=== PATIENT | male | born 1985 | race African-American/Black ===

== ENCOUNTER → 2020-02-03 | Day surgery (SDC) | payer OTHER ==
[~2020-02-03] MED LIST: Flumazenil 0.1 MG/ML 5 ML MDV IV ONE; Ketamine 200 MG/20 ML MDV IV ONE; Lactated Ringers 1,000 ML IV SCH; Midazolam 1 MG/ML 2 ML SDV IV ONE; Phenylephrine 1% 10 MG/ML SDV IV ONE; Propofol 200 MG/20 ML SDV IV ONE; fentaNYL 100 MCG/2 ML SDV IV ONE
--- NOTE | 2020-02-06 14:56 | OR ---
DATE OF OPERATION: 02/03/2020 PREOPERATIVE DIAGNOSIS: 1. NAUSEA AND DIARRHEA. 2. UNINTENTIONAL WEIGHT LOSS. POSTOPERATIVE DIAGNOSIS: 1. NAUSEA AND DIARRHEA. 2. UNINTENTIONAL WEIGHT LOSS. SURGEON: Darvin Linares MD PROCEDURE: 1. EGD WITH BIOPSIES X3, JAZ. 2. FULL-LENGTH COLONOSCOPY WITH RANDOM BIOPSIES X5. ANESTHESIA: MAC. COMPLICATIONS: None. SPECIMEN: 1. Duodenal bulb biopsy x1. 2. Antral biopsy x2. 3. Antral JAZ. 4. Random colon biopsies x5 from terminal ileum to rectal vault. FINDINGS: 1. Full length EGD. 2. Healing gastric erosions x2 near the pylorus. 3. Full-length colonoscopy. 4. Possible low-grade diffuse colitis. RECOMMENDATIONS: Followup pending pathology reports. INDICATIONS: Mr. Porter is a 34-year-old healthy black male who over the last 6 months has had unintentional weight loss, persistent nausea, dyspepsia, and diarrhea. Ultimately, he was sent for diagnostic endoscopy. DESCRIPTION OF PROCEDURE: The patient was prepped and draped, placed in the left lateral decubitus position. A lubricated Olympus gastroscope was inserted over a bit, advanced to cricopharyngeal area, and with patient swallow, intubated into the esophagus. The esophageal lining was benign in its entire course. The Z-line was crisp and sharp at 43 cm. No spontaneous reflux seen. There was no distal esophagitis, stricturing, ulceration, or Brown's changes. The scope advanced into the stomach, through the pylorus, and into the second portion of the duodenum. This and the duodenal bulb appeared benign. There may have been a little bit of villous atrophy, we did do a biopsy of the duodenal bulb. The scope was brought back into the stomach and retroflexed. The upper fundus and cardia were unremarkable. Upon straightening, the rest of the fundus was benign. There may have been some very mild gastritis of the mid to distal portion of the antrum, and extending into the peripyloric area, there appeared to be 2 healing erosions. We did do 2 biopsies of those areas along with an antral CLOtest obtained of an unaffected portion. Air was then suctioned from the stomach and the scope was removed without complication. A lubricated Olympus colonoscope was then inserted, we were able to easily advanced it to the cecum, directly visualized the ileocecal valve and appendiceal orifice, and very briefly, we were able to get into the ileocecal valve. A biopsy was attempted to be obtained, we got very minimal result, but there was no gross abnormalities of the terminal ileum. Nothing to suggest Crohn's. The entire length of the colon appeared to have kind of a slightly inflamed erythematous appearance. No gross ulcerations or signs of fulminant colitis. We did do random biopsies through the length of the colon, totalling [address] to the rectal vault. I found no signs of any polyps, masses, tumors, or worrisome lesions. No diverticula were seen in the rectal vault itself other than a little proctitis distally, was benign. Retroflexion showed no perianal lesions. Air was suctioned, scope removed without complication. SILVER/MILIND /[id number]
== END ==
LOC: CC.SDS 11:17
PROVIDERS: ATTEND Family Medicine
DX: K29.50 Unspecified chronic gastritis without bleeding (principal); R63.4 Abnormal weight loss; K31.9 Disease of stomach and duodenum, unspecified; D70.9 Neutropenia, unspecified; R53.83 Other fatigue; Z68.24 Body mass index [BMI] 24.0-24.9, adult
CPT/HCPCS: 43239; 45380; 87081; J2250; J2370; J2704; J3010; J3490; J7120

== ENCOUNTER 2021-10-25 06:23 | Emergency (ER) | payer BC ==
[2021-10-25] MEDS ORDERED: Morphine 2 MG/ML SYRINGE IVPUSH ONE ×2 (07:34→08:16)
[2021-10-25 07:41] LABS: CHLORIDE,CL 102 mEq/L (98-106); SODIUM,NA 141 mEq/L (136-145)
== END 2021-10-25 10:05 | disposition home or self-care (01) ==
LOC: CC.ED 06:23
DX: K50.90 Crohn's disease, unspecified, without complications (principal)
CPT/HCPCS: 36415; 80053; 82150; 82272; 83690; 85025; 86140; 96374; 96376; 99284; J2270; 82270; 99283